=== PATIENT | male | born 1960 | race Caucasian/White ===

== ENCOUNTER 2018-03-16 02:47 | Emergency (ER) | payer BC ==
--- NOTE | 2018-03-16 04:47 | ER ---
DATE SEEN: 03/16/2018 CHIEF COMPLAINT: Injury, right ankle. HISTORY OF PRESENT ILLNESS: A 57-year-old male, who tripped and rolled the right ankle tonight. Complains of pain and swelling, moderate in intensity. Pain worse with weightbearing. No other injuries. ALLERGIES: None. REVIEW OF SYSTEMS: All other systems noncontributory. PHYSICAL EXAMINATION: VITAL SIGNS: Blood pressure and temperature normal. GENERAL: He is not in distress. EXTREMITIES: Right ankle revealed effusion and tenderness to palpation of the lateral malleolus. Peripheral pulses are present. IMAGING: X-ray confirmed a fracture of the fibula. IMPRESSION: Fibular fracture. PLAN: Ice. CAM Walker boot. NSAID p.r.n. Follow up in the office on Saturday. Return p.r.n. /[id number] WILLIAM/KANDICE
== END 2018-03-16 04:25 | disposition home or self-care (01) ==
LOC: FB.ED 02:47
DX: S82.401A Unspecified fracture of shaft of right fibula, initial encounter for closed fracture (principal); W18.40XA Slipping, tripping and stumbling without falling, unspecified, initial encounter
CPT/HCPCS: 73610-RT; 99283